=== PATIENT | female | born 1990 | race African-American/Black ===

== ENCOUNTER 2017-03-14 07:45 | Emergency (ER) | payer OTHER ==
[2017-03-14 08:04] VITALS: PULSE 69; RESP 20; TEMP 96.8; O2SAT 100
[2017-03-14 09:49] VITALS: BP 123/83
== END 2017-03-14 09:45 | disposition home or self-care (01) | DRG 605 ==
LOC: ED 07:45
DX: S60.131A Contusion of right middle finger with damage to nail, initial encounter (principal); W23.0XXA Caught, crushed, jammed, or pinched between moving objects, initial encounter
CPT/HCPCS: 99282

== ENCOUNTER 2018-03-06 12:42 | Emergency (ER) | payer OTHER ==
[2018-03-06 13:20] LABS: APPEARANCE,URINE Clear; BILIRUBIN,URINE NEGATIVE (NEGATIVE); COLOR,URINE Yellow; GLUCOSE, URINE (UA) NEGATIVE (NEGATIVE); KETONES,URINE NEGATIVE (NEGATIVE); LEUKOCYTE ESTERASE ,URINE 1+ (NEGATIVE); NITRATE,URINE NEGATIVE (NEGATIVE); OCCULT BLOOD,URINE NEGATIVE (NEG-TRACE); UROBILINOGEN,URINE 0.2 (0.2-1.0 EU)
[2018-03-06 13:23] VITALS: BP 144/81; PULSE 78; RESP 16; TEMP 97; O2SAT 98
[2018-03-06 13:26] LABS: BACTERIA 2+ (< 1+); CRYSTALS NEGATIVE (0-3 AVE/HPF); RBC,URINE 0-2 (0-3AV/HPF)
== END 2018-03-06 13:47 | disposition home or self-care (01) ==
LOC: ED 12:42
DX: O23.41 Unspecified infection of urinary tract in pregnancy, first trimester (principal)
CPT/HCPCS: 81001; 87088; 99282